=== PATIENT | male | born 1965 | race Caucasian/White ===

== ENCOUNTER 2021-06-27 07:17 | Emergency (ER) | payer MEDICAID ==
[~2021-06-27] VITALS: Ht 180.3 cm; Wt 68.0 kg
[2021-06-27 07:23] VITALS: BP 154/101
--- NOTE | 2021-06-27 07:23 | NUR ---
PT ROSIO VIA GURNEY TO BED 12.
--- NOTE | 2021-06-27 07:39 | NUR ---
55 Y/O MALE BIBA FROM STREETS C/O ABD PAIN. PER EMS PT SET FIRE TO A SHED TO KEEP WARM. PT ALSO HAS 2 RADHA FROM A CUT 10-14 DAYS AGO. ABD IS SOFT, FLAT, NON-TENDER TO PALPATION, BOWEL SOUNDS ACTIVE X4. DENIES PMH NKA
--- NOTE | 2021-06-27 07:53 | NUR ---
DR. BRIGGS AT PT BEDSIDE.
--- NOTE | 2021-06-27 08:01 | NUR ---
DR. BRIGGS AT PT BEDSIDE FOR PROCEDURE AT THIS TIME.
[2021-06-27 08:24] VITALS: BP 134/84
--- NOTE | 2021-06-27 08:26 | NUR ---
PATIENT [facility] POLICE DEPT. PATIENT EXAMINED BY DR. BRIGGS. PATIENT MEDICALLY CLEARED AND RELEASED IN CUSTODY IN STABLE CONDITION. ORIGINAL PRE-BOOK FORM GIVEN TO OFFICER CHRISTINA.
== END 2021-06-27 08:24 ==
LOC: MED 07:17
DX: Z02.89 Encounter for other administrative examinations (principal); R10.9 Unspecified abdominal pain; H57.89 Other specified disorders of eye and adnexa
CPT/HCPCS: 99283